=== PATIENT | female | born 1945 | race Caucasian/White ===

== ENCOUNTER 2018-04-29 16:54 | Inpatient (IN) ==
[~2018-04-29 16:54] MED LIST: ACETAMINOPHEN 500 MG TABLET PO ONE; EPINEPHrine PF 0.25 MG, BUPIVACAINE 0.25% PF 30 ML, KETOROLAC INJ 60 MG in NS 30 ML OPSITE ONE; FAMOTIDINE PB 20 MG/50 ML BAG IV ONE; METOCLOPRAMIDE 10mg/2ml INJECTION IVP ONE; ONDANSETRON 4 MG/2 ML INJECTION IVP ONE
[2018-04-29 17:14] VITALS: BMI 27.5
[2018-04-29] MEDS ORDERED: MORPHINE SULFATE 10mg/ml VIAL IVP PRN (17:17)
[2018-04-29] MEDS ORDERED: HYDROCODONE/APAP 7.5 MG/325 MG TABLET PO PRN (17:17)
[2018-04-29] MEDS ORDERED: NOZIN NASAL SWAB NAS ONE (17:17)
[2018-04-29] MEDS: NS 1,000 ML IV SCH (17:34)
[2018-04-29] MEDS ORDERED: CARBOXYMETHYL EACH EYE PRN (17:59)
[2018-04-29] MEDS ORDERED: POLY80 EACH EYE PRN (17:59)
[2018-04-29] MEDS ORDERED: [UNRECOGNIZED DRUG - OTHER] EACH EYE PRN (17:59)
[2018-04-29] MEDS ORDERED: GLYCERIN EACH EYE PRN (17:59)
[2018-04-30] MEDS: NS 1,000 ML IV SCH ×4 (06:48→19:18)
--- NOTE | 2018-04-30 08:11 | XRay Report ---
Indication: PREOP PROCEDURE: XR chest 1V: Encounter: Initial Comparison: September 27, 2016 FINDINGS: The lungs are clear. There is no abnormal airspace opacity, pleural effusion or pneumothorax identified. The heart size, pulmonary vasculature and mediastinum are within normal limits. Degenerative change in the spine with lumbar spinal fusion hardware. IMPRESSION: No acute cardiopulmonary abnormality. There is a preliminary report by virtual radiologic. .
[2018-04-30] MEDS ORDERED: CEFAZOLIN 1 G INJECTION IVP ONE (08:32)
[2018-04-30] MEDS ORDERED: TRANEXAMIC ACID 1,000 MG in NS 100 ML TOP ONE (09:00)
[2018-04-30] MEDS ORDERED: NOZIN NASAL SWAB NAS ONE ×2 (09:30→15:22)
[2018-04-30] MEDS ORDERED: ONDANSETRON 4 MG/2 ML INJECTION IVP ONE (09:45)
[2018-04-30] MEDS ORDERED: METOCLOPRAMIDE 10mg/2ml INJECTION IVP ONE (09:45)
--- NOTE | 2018-04-30 10:19 | Anesthesia Preoperative Report ---
Anesthesia Preoperative Record - Date and Time Date: 04/30/18 Preoperative Diagnosis: ORIF of periprosthetic fracture with right proxima NPO Since Date: 04/29/18 NPO Since Time: 23:00 Allergies/Adverse Reactions: Allergies Allergy/AdvReac Type Severity Reaction Status Date / Time adhesive AdvReac Intermediate skin peels Verified 04/29/18 17:35 off - Vital Signs Vital Signs: Temperature 97.5 F 04/30/18 07:53 Pulse Rate 58 L 04/30/18 08:24 Respiratory Rate 16 04/30/18 07:53 Blood Pressure 145/67 H 04/30/18 07:53 Pulse Oximetry 99 04/30/18 07:53 Height and Weight: Height 1.7 m Weight 81 kg Body Mass Index 27.5 - Medications Inpatient Medications: Current Medications Hydrocodone Bitart/Acetaminophen ([employer] 7.5/325) 1 - 2 tab PO Q4H PRN PRN Reason: Pain Artificial Tears (Refresh Celluvisc) 1 drop EACH EYE PRN PRN Sodium Chloride (Normal Saline) 1,000 mls @ 75 mls/hr IV .[id number] [facility] Last Admin: 04/30/18 06:48 Dose: 75 mls/hr Epinephrine HCl 0.25 mg/Bupivacaine HCl 30 ml/Ketorolac Tromethamine 60 mg/ Sodium Chloride 62.25 mls @ 1 mls/hr OPSITE INTRAOP ONE PRN Reason: Protocol Stop: 05/01/18 22:14 Morphine Sulfate (Morphine Sulfate Vial) 2 - 10 mg IVP Q1H PRN PRN Reason: Pain Morphine Sulfate (Ms Contin) 15 mg PO BID [facility] Last Admin: 04/29/18 21:35 Dose: 15 mg Home Medications: Home Medications Medication Instructions Recorded Confirmed Type Levothyroxine Tab [Synthroid] 100 mcg PO DAILY 07/02/17 04/29/18 History Acetaminophen [Acetaminophen Extra 1,000 mg PO Q6H PRN 04/10/18 04/29/18 History Strength] Bilberry Extract 150 mg PO HS 04/10/18 04/29/18 History Calcium Carbonate 1,200 mg PO DAILY 04/10/18 04/29/18 History Carboxymethyl/Glycerin/Poly80 1 drop EACH EYE PRN PRN 04/10/18 04/29/18 History [Refresh Optive Advanced Drops] Celecoxib [Celecoxib] 200 mg PO DAILY 04/10/18 04/29/18 History Cholecalciferol (Vitamin D3) 2,000 unit PO DAILY 04/10/18 04/29/18 History [Vitamin D3] Duloxetine [Cymbalta] 60 mg PO DAILY 04/10/18 04/29/18 History Ezetimibe [Ezetimibe] 10 mg PO DAILY 04/10/18 04/29/18 History Folic Acid [Folate] 2 mg PO DAILY 04/10/18 04/29/18 History Furosemide [Lasix 20 mg Tab] 20 mg PO DAILY 04/10/18 04/29/18 History Lactobacillus Acidophilus 1 cap PO HS 04/10/18 04/29/18 History [Probiotic] Morphine Sulfate *SR* [Ms Contin] 15 mg PO BID 04/10/18 04/29/18 History Omeprazole [Prilosec] 20 mg PO ACB 04/10/18 04/29/18 History Potassium Chloride 10 meq PO DAILY 04/10/18 04/29/18 History Simethicone [Gas-X] 125 mg PO PRN PRN 04/10/18 04/29/18 History azaTHIOprine [Imuran] 50 mg PO BID 04/10/18 04/29/18 History cycloSPORINE [Restasis Multidose] 1 drops EACH EYE BID 04/29/18 04/29/18 History - Medical History Respiratory: Reports: Bronchitis, Sleep Apnea, Other (seasonal allergies) Gastrointestional: Reports: Gastroesophageal Reflux Disease Neuro/Musculoskeletal: Reports: Back Problems (chronic with history of back fusion, neuropathy to lower extremeties), Depression Renal/Endocrine: Reports: Thyroid Disease Other History: Reports: Cancer (HX UTERINE, UTERUS REMOVED) - Surgical History HEENT Surgeries: Reports: Eye Surgery (CATARACTS), Tonsillectomy Respiratory Surgery/Treatments: Reports: CPAP Use GI Surgery/Treatments: Reports: Appendectomy Musculoskeletal Surgery/Tx: Reports: Total Hip Replacement (BILAT, MUSCLE WORK DONE TO RIGHT HIP), Total Knee Replacement (BILAT) Reproductive Surgery/Treatment: Reports: Hysterectomy Hx Family Anesthesia Reaction: No History of Motion Sickness: No - Social History Smoking Status: Never smoker Hx Chewing Tobacco Use: No Second Hand Exposure: No Substance Use Type: does not use Alcohol Intake: current Alcohol Intake Frequency: does not drink - Pertinent Findings Laboratory: CBC and BMP 04/29/18 17:30 06/13/18 17:30 BMP 04/29/18 17:30 Sodium 142 Potassium 4.8 Chloride 103 Carbon Dioxide 27 BUN 23.0 H Creatinine 1.0 Glucose 94 Calcium 9.6 Liver Function 04/29/18 Range/Units 17:30 Total Bilirubin 0.40 (0.20-1.30) MG/DL AST 49 H (14-36) U/L ALT 42 H (1-35) U/L Alkaline Phosphatase 121 (38-126) U/L Albumin 4.5 (3.5-5.0) g/dL EKG: Sinus Bradycardia - Physical Exam Respiratory Exam: Present: lungs clear Cardiovascular Exam: Present: regular rate and rhythm - Airway Assessment Mallampati Score: II TMD: 4 Fingerbreadths Neck Extension: fair Teeth: chipped teeth/crowns Overall Assessment: may be difficult intubation - ASA ASA Score: 3 - Plan Anesthesia: General TIVA - Discussion Discussion: Discussed risks/options/alternatives of anesthesia and questions answered. Patient consents. Nursing pain assessment noted. Present for Discussion: spouse, children Attestation Statement: Prior to the delivery of any anesthetic medication, I examined the patient, developed the plan, obtained the patient's consent and discussed the risk and benefits of the procedure with the patient/guardian.
[2018-04-30] MEDS ORDERED: PROPOFOL 500 MG/50 ML VIAL ONE (10:26)
[2018-04-30] MEDS ORDERED: LIDOCAINE 2% (100mg/5mL) 5ml PF SDV ONE (10:26)
[2018-04-30] MEDS ORDERED: ROCURONIUM 50 MG/5 ML INJECTION IVP ONE (10:26)
[2018-04-30] MEDS ORDERED: KETAMINE 500 MG/10 ML INJECTION ONE (10:26)
[2018-04-30] MEDS ORDERED: FentaNYL 250 MCG/5 ML INJECTION ONE (10:26)
[2018-04-30] MEDS ORDERED: DEXAMETHASONE 4 MG/ML INJECTION ONE (10:27)
[2018-04-30] MEDS ORDERED: ONDANSETRON 4 MG/2 ML INJECTION ONE (10:27)
[2018-04-30] MEDS ORDERED: PROPOFOL 20 ML ONE ×2 (10:30→12:45)
[2018-04-30] MEDS ORDERED: SEVOFLURANE 250ml LIQUID IH ONE (10:35)
[2018-04-30] MEDS ORDERED: EPHEDRINE 50mg/ml INJECTION ONE (11:20)
[2018-04-30] MEDS ORDERED: VANCOMYCIN 1,000 MG INJECTION ONE (11:29)
[2018-04-30] MEDS: VANCOMYCIN 1,000 MG INJECTION IAR ONE ×2 (13:11→13:19)
[2018-04-30] MEDS ORDERED: SUGAMMADEX 200mg/2ml INJECTION IVP ONE (13:13)
--- NOTE | 2018-04-30 13:44 | Remote Fluorsocopy Report ---
Indication: ORIF RIGHT HIP PROCEDURE: RF hip RT 2 view: Encounter: Initial Comparison: April 29, 2018 Findings: Six fluoroscopic spot images show open reduction and internal fixation of the periprosthetic proximal femoral fracture with placement of five cerclage wires. Impression: Fluoroscopy as above. Fluoroscopy time is 52 seconds. Fluoroscopy dose is 1080 mRad. .
[2018-04-30] MEDS: HYDROMORPHONE 2 MG/ML INJECTION IVP PRN ×3 (13:55→14:18)
[2018-04-30] MEDS ORDERED: FentaNYL 100 MCG/2 ML INJECTION IVP PRN (14:23)
--- NOTE | 2018-04-30 14:51 | Anesthesia Postoperative Note ---
- Date and Time Date: 04/30/18 Time: 14:50 - Status Patient Participated in Evaluation: Patient Participated in Person Vital Signs: Temperature 97.1 F 04/30/18 14:43 Pulse Rate 68 04/30/18 14:40 Respiratory Rate 12 04/30/18 14:40 Blood Pressure 132/65 04/30/18 14:40 Pulse Oximetry 98 04/30/18 14:40 Respiratory Function: Airway Patent, Regular Respirations Cardiovascular Function: Regular Pulse Mental Status: Alert and Oriented Pain Intensity: 4 Hydration: IV Infusing Complications During Recover: None Apparent - Follow-Up Instructions Instructions: Per Surgeon
[2018-04-30] MEDS ORDERED: ACETAMINOPHEN 325 MG TABLET PO PRN (15:22)
[2018-04-30] MEDS ORDERED: SENNA + DOCUSATE TABLET PO PRN (15:22)
[2018-04-30] MEDS ORDERED: ONDANSETRON 4 MG/2 ML INJECTION IVP PRN (15:22)
[2018-04-30] MEDS: NOZIN NASAL SWAB NAS SCH ×2 (15:28→23:56)
[2018-04-30] MEDS: Oxycodone *IR* 5 MG TABLET PO PRN ×4 (16:59→23:56)
[2018-04-30] MEDS: CEFAZOLIN 2 G in NS 100 ML IV SCH (18:05)
[2018-04-30] MEDS: CycloSPORINE 0.05% EYE DROPS 4ml EACH EYE SCH (20:14)
[2018-04-30] MEDS: ENOXAPARIN 40 MG/0.4 ML INJECTION SQ SCH (20:14)
--- NOTE | 2018-04-30 21:57 | Operative Note ---
DATE OF SURGERY 04/30/2018 PREOPERATIVE DIAGNOSIS Right femur periprosthetic fracture. POSTOPERATIVE DIAGNOSIS Right femur periprosthetic fracture. PROCEDURE Open reduction internal fixation of right femur periprosthetic fracture. SURGEON Sanchez Mckeon MD [employer] TE[employer] Osbaldo Tyson PA-C COMPLICATIONS None. ANESTHESIA General. EBL/FLUIDS Please see anesthetic record. DESCRIPTION OF PROCEDURE Mrs. Maria and her right thigh were identified and marked in the preoperative holding area. She was brought back to the operating suite and placed supine on the operating table. She was placed under general anesthesia. She was then placed into a lateral decubitus position with well-padded positioners. Next, a roll was placed. The right lower extremity was prepped and draped in my normal sterile fashion. Time-out was performed. A lateral approach to her femur was performed using a previous incision site. Sharp dissection was carried to subcutaneous tissue. She has had multiple previous surgeries in this area and there was abundant scar tissue and there was a very flimsy fascial layer which was incised in line with the skin incision. Muscle fibers were then divided proximally and then the femur was encountered at the fracture site. I then dissected directly on bone to remove soft tissue to expose the entire fracture up to the start of the great trochanter. The fracture was slightly shortened and the distal fragment was internally rotated relative to the proximal fragment. Soft tissue that was in the fracture site was removed. The wound was thoroughly irrigated. I then attempted to reduce the fracture site with traction on the leg in external rotation. We were able to get [id number] reduction clamp. This did not zabala in perfectly and was still about 2 cm short. After multiple trials including, ensuring the patient was completely relaxed, we were yet 2 mm short. I felt the only way this was possible was if a component had possibly subsided just slightly. She had been walking on this since the injury for about three weeks. I then placed one cable around the fracture site and we provisionally tightened it down. When we did this the fracture did reduce much better, very near anatomical. This was checked on fluoroscopic films. I did decide to supplement the fixation with a cortical strut graft which was thawed on the back table. It was approximately 7 inches long. It was placed laterally over the distal femur under the first provisional cable. It was also noted that it appeared she had a previous fracture of the femur. There was callus present a couple of centimeters distal to the femoral stem and also slight deformity of the femur at this location as well. I proceeded to place four more cables around the graft , two distal to the fracture and two proximally around the fracture site itself. All were tightened down sequentially and checked on fluoroscopic imaging. The middle cable when tightening did break, not injuring the bone. It was replaced with a new cable. After all five of these cables were tightened and crimped I placed one more cable proximal to the graft just below the lesser trochanter. It was also tightened and crimped. All cables were checked for tightness a second time and fluoroscopic imaging was used to confirm good fracture reduction and hardware placement. The wound was thoroughly irrigated. One gram of TXA was placed into the wound and allowed to sit for three minutes and then irrigated out. I also used Betadine solution and irrigation during the case. The IT band fascia was repaired with #1 Vicryl. One gram of vancomycin powder was placed into the wound. The subcutaneous tissue was closed with 2-0 Vicryl and the skin was closed with neeta. A sterile dressing was placed. She was placed back into a supine position and allowed to awaken from general anesthesia and then taken to the recovery room under the care of Anesthesia. She tolerated the procedure well. There were no complications. GROVER
[2018-05-01] MEDS: NS 1,000 ML IV SCH ×4 (02:40→12:54)
[2018-05-01] MEDS: CEFAZOLIN 2 G in NS 100 ML IV SCH (02:40)
[2018-05-01] MEDS: Oxycodone *IR* 5 MG TABLET PO PRN ×5 (03:40→19:08)
[2018-05-01] MEDS: LEVOTHYROXINE 100 MCG TABLET PO SCH (06:21)
[2018-05-01] MEDS: OMEPRAZOLE 20 MG CAPSULE PO SCH (06:21)
[2018-05-01] MEDS: NOZIN NASAL SWAB NAS SCH ×4 (06:21→23:53)
--- NOTE | 2018-05-01 08:18 | Orthopedic Progress Note ---
Date: Date: 05/01/18 Time: 755 Subjective/Severity of Illness: Emerald is doing very well. Pain is minimal when lying in bed. Occasionally gets twinges of pain in the thigh. No CP or SOA. Had a vagal event last evening when up to the commode. IV fluid bolus given and symptoms have not reoccurred. She denies lightheadedness or dizziness. BPs this AM were 109/53 lying and 98/ 41 standing. She has been up to the BR a couple times. Renal function is good this AM . Hgb dropped from 12.0 to 8.4 . Orthopedic Exam Vital signs: Temperature 98.1 F 05/01/18 07:45 Pulse Rate 67 05/01/18 07:45 Respiratory Rate 16 05/01/18 07:45 Blood Pressure 115/57 05/01/18 07:45 Pulse Oximetry 99 05/01/18 07:45 - Constitutional General Appearance: Present: alert, cooperative, no acute distress - Respiratory Exam Present: non-labored - Cardiovascular Exam Present: Regular Rate/Rhythm, pedal pulses intact - Extremities Exam Present: pulses intact. Absent: calf tenderness - Dressing Dressing: dry, intact, other (Shaddowing seen on proximal dressing. ) - Integumentary Exam Present: pink, warm, dry - Neurological Exam Present: intact to light touch, no deficits - Psychiatric Exam Present: alert, normal affect - Labs Result Diagrams: 05/01/18 04:46 05/01/18 04:46 Abnormal lab results 05/01/18 05/01/18 Range/Units 04:46 04:46 RBC 2.77 L (4.00-5.20) M/MM3 Hgb 8.4 L D (12-16) GM/DL Hct 26.6 L D (36-46) % Neut % (Auto) 80.4 H (33-66) % Lymph % (Auto) 11.1 L (23-45) % Neut # (Auto) 7.9 H (1.8-7.7) T/MM3 Glucose 119 H (65-110) MG/DL Calcium 8.1 L D (8.4-10.2) MG/DL H & H 04/29/18 05/01/18 Range/Units 17:30 04:46 Hgb 12.0 8.4 L D (12-16) GM/DL Hct 36.9 26.6 L D (36-46) % Orthopedic Assessment and Plan (1) Najma-prosthetic fracture of femur following total hip arthroplasty Status: Acute Qualifiers: Encounter type: initial encounter Qualified Code(s): M97.8XXA - Periprosthetic fracture around other internal prosthetic joint, initial encounter; Z96.649 - Presence of unspecified artificial hip joint Assessment and Plan: Lovenox protocol for VTE prophylaxis. Hgb 8.4 this AM. Will need to monitor. SCD's and mobilization for added DVT coverage. Foot flat / touch wt bearing. Pt having some BP problems and on IVFs. Will get hospitalist consult to help manage her medical issues. Check AM labs. PT/OT services to improve independent function. Discharge Planning per Case Management. - Anticoagulation Therapy Anticoagulation: Lovenox 40 mg SQ Daily x 30 days from day of surgery Hospital Course Summary Disclaimer: The visit summary below is not to be considered part of the above Progress Note.
[2018-05-01] MEDS: CycloSPORINE 0.05% EYE DROPS 4ml EACH EYE SCH ×2 (08:58→21:59)
[2018-05-01] MEDS: FOLIC ACID 1 MG TABLET PO SCH (08:58)
[2018-05-01] MEDS: FUROSEMIDE 20 MG TABLET PO SCH (08:58)
[2018-05-01] MEDS: EZETIMIBE 10 MG TABLET PO SCH (08:58)
[2018-05-01] MEDS: DULOXETINE 60 MG CAPSULE PO SCH (08:58)
[2018-05-01] MEDS: CELECOXIB 200 MG CAPSULE PO SCH (08:59)
[2018-05-01] MEDS: CALCIUM CARBONATE 600 MG TABLET PO SCH (08:59)
--- NOTE | 2018-05-01 16:54 | Consult Note ---
Consult Information - Data of Consult Consult date: 05/01/18 Requesting Physician: Sourav Mckeon MD Primary Care Provider: Leonel Ramirez MD - Consult Narrative Reason for consult: hypotension, CKD History of present illness: Patient is a 73yo who fell the end of March resulting in severe hip pain. She went to ED and xray was neg. She followed by with ortho and a bone scan was done showing no significant abnormality. A repeat xray showed a right femur periprosthetic fracture. She underwent ORIF of this fracture yesterday with Dr. Mckeon. She has been doing well other than she had a vagal event last evening when up to the commode. She was given IV fluid bolus and hasn't had return of sxs. She was orthostatic this morning but denies any significant lightheadedness today. Her hgb was 12.0 pre-op and 8.4 post-op. Hospitalist service has been consulted to follow her hypotension. Hasn't had a BM since admission. Pain is controlled at present, but she is starting to have more discomfort today. Past Medical History Medical History: Medical History (Last Reviewed 04/29/18 @ 15:32 by VALORIE Francois) Vitamin D deficiency (Chronic) Onset Date: ~09/2017 Vitamin D insufficiency should be treated with 50,000 iu weekly as she has already begun. Agree with recheck aftetr [address] Martínez has planned. Hypothyroidism (Chronic) Onset Date: ~1959 Clinically euthyroid; confirm chemically. Kidney disease, chronic, stage III (GFR 30-59 ml/min) (Chronic) Deep vein thrombosis (DVT) of left lower extremity (Chronic) Asthma (Chronic) Obstructive sleep apnea (Chronic) Neuropathy (Chronic) Muscle disorder (Chronic) Rt Leg Weakness Osteoarthritis (Chronic) Depression (Chronic) GERD (gastroesophageal reflux disease) (Chronic) Uterine cancer (Chronic) Onset Date: ~2011 Surgical History: Rt Salpingo oophorectomy. Rods in back for scoliosis 1962. Lt TKA 09-12-16. Hysterectomy w/ pelvic lymph nodes. Rt JACQUELINE 1998 (Had an additional 7 surgeries on hip). Fusion L1-L5 2005. Lt JACQUELINE 2006. Rt TKA 2013. Appendectomy 2001. Bilat [facility] Family History: Family History (Last Reviewed 04/29/18 @ 15:32 by VALORIE Francois) Mother Diabetes Heart disease High blood pressure Sister Thyroid disease Family History: As Above - Social History Smoking status: Never smoker Substance use type: does not use Alcohol intake frequency: does not drink (occasional) Household members: none Current occupational status: retired Current residence: Apartment/Private Home Social history: PCP - Dr. Ramirez Neuro - Dr. Hardy Rheum - Dr. Woo Ortho - Dr. Mckeon/Mauricio RUBBER WORKER/ONC - Dr. Denis Review of Systems All systems PM: 10-point ROS was reviewed, no additional remarkable complaints except (R hip pain) Medications Home Medications Medication Instructions Recorded Confirmed Type Levothyroxine Tab [Synthroid] 100 mcg PO DAILY 07/02/17 04/29/18 History Acetaminophen [Acetaminophen Extra 1,000 mg PO Q6H PRN 04/10/18 04/29/18 History Strength] Bilberry Extract 150 mg PO HS 04/10/18 04/29/18 History Calcium Carbonate 1,200 mg PO DAILY 04/10/18 04/29/18 History Carboxymethyl/Glycerin/Poly80 1 drop EACH EYE PRN PRN 04/10/18 04/29/18 History [Refresh Optive Advanced Drops] Celecoxib [Celecoxib] 200 mg PO DAILY 04/10/18 04/29/18 History Cholecalciferol (Vitamin D3) 2,000 unit PO DAILY 04/10/18 04/29/18 History [Vitamin D3] Duloxetine [Cymbalta] 60 mg PO DAILY 04/10/18 04/29/18 History Ezetimibe [Ezetimibe] 10 mg PO DAILY 04/10/18 04/29/18 History Folic Acid [Folate] 2 mg PO DAILY 04/10/18 04/29/18 History Furosemide [Lasix 20 mg Tab] 20 mg PO DAILY 04/10/18 04/29/18 History Lactobacillus Acidophilus 1 cap PO HS 04/10/18 04/29/18 History [Probiotic] Morphine Sulfate *SR* [Ms Contin] 15 mg PO BID 04/10/18 04/29/18 History Omeprazole [Prilosec] 20 mg PO ACB 04/10/18 04/29/18 History Potassium Chloride 10 meq PO DAILY 04/10/18 04/29/18 History Simethicone [Gas-X] 125 mg PO PRN PRN 04/10/18 04/29/18 History azaTHIOprine [Imuran] 50 mg PO BID 04/10/18 04/29/18 History cycloSPORINE [Restasis Multidose] 1 drops EACH EYE BID 04/29/18 04/29/18 History Allergies Allergy/AdvReac Type Severity Reaction Status Date / Time adhesive AdvReac Intermediate skin peels Verified 04/29/18 17:35 off Exam Vital Signs: Temperature 98.4 F 05/01/18 16:00 Pulse Rate 72 05/01/18 16:00 Respiratory Rate 14 05/01/18 16:00 Blood Pressure 100/46 05/01/18 16:00 Pulse Oximetry 98 05/01/18 16:00 Height/Weight/BMI: Height 1.7 m Weight 81.3 kg Body Mass Index 27.5 - Constitutional Present: no acute distress, well nourished, well developed - Routine HEENT Exam Head: Present: normocephalic, atraumatic Eye: Present: EOMI, PERRL ENT: Present: mucous membranes moist, oropharynx clear - Routine Neck Exam Absent: lymphadenopathy - Routine Respiratory Exam Present: CTA bilaterally. Absent: wheezes - Routine Cardiovascular Exam Present: RRR, murmur - Routine Abdominal Exam Present: soft, normoactive bowel sounds. Absent: tenderness, distended - Routine Extremities Exam Present: no edema, normal capillary refill - Routine Skin Exam Present: dry, warm - Routine Neurological Exam Present: alert, oriented X3, CN II-XII intact - Routine Psychiatric Exam Present: normal affect, cooperative Results - Labs CBC & Chem 7: 05/01/18 04:46 05/01/18 04:46 Assessment and Plan Assessment and Plan: Assessment Hypotension Acute blood loss anemia r/t surgery S/p ORIF R femur periprosthetic fracture Post op constipation Vitamin D deficiency Hypothyroidism Onset Date: ~1959 Kidney disease, chronic, stage III (GFR 30-59 ml/min) Deep vein thrombosis (DVT) of left lower extremity Asthma Obstructive sleep apnea -uses CPAP Neuropathy Chronic pain - on Morphine sulfate BID Muscle disorder - Rt Leg Weakness Osteoarthritis Depression GERD H/o Uterine cancer - (no chemo/radiation, clear lymph nodes. No recurrence) Onset Date: ~2011 Plan Pt is taking po well, will DC IVF's. Hgb dropped 12.0-->8.4. Repeat CBC in am. Transfuse if <8 given her CKD. Pain management per ortho. Check orthostatics in the am. DVT Prophylaxis: Lovenox Resuscitation Status: Full Code - Physician Narrative Physician: Héctor Ortiz MD Narrative: Date: 05/01/18 Time: 1646 Have independently interviewed and examined pt. Chart reviewed. Case discussed with my PA. Care plan developed with my supervision; agree with above. Admitted for repair of periprosthetic fracture. Tolerated surgery well. Consult placed due to low BP. Reports has vasovagal event. Overall, not feeling dizzy/ unsteady with positional changes but does have to change positions slowly due to post op pain/stiffness. Has never had elevation of blood pressure. Reviewing BP trends from this admission, BP trending down gradually. HBG also with decrease to 8.4. Denies palpitations or chest pain. Breathing well. Appetite stable. Reports flatus, but no stool production since in preop area. PRN bowel medications available but not used. Pain stable at rest but increases with activities/therapy. Feels pain controlled. Lungs: clear bilaterally CV: regular AB: soft nt/nd BS present MSE: awake alert appropriate, thoughts linear Plan: Feel can stop IVF as oral intake doing well. Possible decrease in BP due to post op anemia-continue to follow HGB and transfuses as indicated. Will monitor for orthostasis. Potentially need Florinef if BP decreases. With post op constipation will add routine Miralax (hold with loose stool). Continue supportive care as outlined by ortho. Encourage therapy. Encourage pulm toilet. Will continue to follow along. Hospital Course Summary Disclaimer: The visit summary below is not to be considered part of the above Progress Note.
[2018-05-01] MEDS: POLYETHYL GLYCOL 3350 17gm PACKET PO SCH (19:32)
[2018-05-01] MEDS: ENOXAPARIN 40 MG/0.4 ML INJECTION SQ SCH (21:14)
[2018-05-02] MEDS: Oxycodone *IR* 5 MG TABLET PO PRN ×4 (03:18→14:50)
[2018-05-02] MEDS: NOZIN NASAL SWAB NAS SCH ×2 (06:22→16:06)
[2018-05-02] MEDS: OMEPRAZOLE 20 MG CAPSULE PO SCH (06:23)
[2018-05-02] MEDS: LEVOTHYROXINE 100 MCG TABLET PO SCH (06:23)
[2018-05-02] MEDS: DULOXETINE 60 MG CAPSULE PO SCH (09:51)
[2018-05-02] MEDS: EZETIMIBE 10 MG TABLET PO SCH (09:51)
[2018-05-02] MEDS: REFRESH CELLUVISC 1% Eye Drops 0.4ml EACH EYE PRN (09:51)
[2018-05-02] MEDS: POLYETHYL GLYCOL 3350 17gm PACKET PO SCH (09:51)
[2018-05-02] MEDS: FUROSEMIDE 20 MG TABLET PO SCH (09:51)
[2018-05-02] MEDS: FOLIC ACID 1 MG TABLET PO SCH (09:52)
[2018-05-02] MEDS: CALCIUM CARBONATE 600 MG TABLET PO SCH (09:52)
[2018-05-02] MEDS: CELECOXIB 200 MG CAPSULE PO SCH (09:52)
[2018-05-02] MEDS: CycloSPORINE 0.05% EYE DROPS 4ml EACH EYE SCH ×2 (09:54→22:39)
[2018-05-02] MEDS ORDERED: NS FLUSH BAG 500ml IV PRN (11:20)
--- NOTE | 2018-05-02 11:25 | Progress Note ---
- Date 05/02/18 Subjective: F/U: Hypotension, Acute blood loss anemia r/t surgery, S/p ORIF R femur periprosthetic fracture, Post op constipation Doing okay today. Pain controlled at rest; does hurt with movements/positional changes. Worked with PT today on transfers. Breathing well. No chest pain. No nausea. Not had stool-did receive Miralax this am. Objective Vital signs: Temperature 97.7 F 05/02/18 07:58 Pulse Rate 67 05/02/18 07:58 Respiratory Rate 16 05/02/18 07:58 Blood Pressure 110/51 05/02/18 07:58 Pulse Oximetry 99 05/02/18 07:58 Height/Weight/BMI: Height 1.7 m Weight 81.9 kg Body Mass Index 27.5 - Constitutional Present: well nourished, well developed, average body habitus, cooperative - Routine HEENT Exam Head: Present: normocephalic, atraumatic Eye: Present: EOMI, PERRL ENT: Present: mucous membranes moist - Routine Respiratory Exam Present: CTA bilaterally. Absent: respiratory distress, wheezes, crackles - Routine Cardiovascular Exam Present: RRR, no murmur - Routine Abdominal Exam Present: soft, normoactive bowel sounds, non distended, non tender. Absent: guarding - Routine Extremities Exam Present: no edema. Absent: cyanosis, clubbing Comments: SCD in place - Routine Musculoskeletal Exam Musculoskeletal: Present: no clubbing or cyanosis - Routine Skin Exam Present: dry, warm - Routine Neurological Exam Present: alert, oriented X3, CN II-XII intact, moving all extremities, vision grossly intact, hearing grossly intact, normal speech. Absent: motor deficit, altered mental status - Routine Psychiatric Exam Present: normal affect, cooperative Results - Labs CBC & Chem 7: 05/02/18 03:56 05/02/18 03:56 Assessment and Plan Assessment and Plan: Assessment Hypotension Acute blood loss anemia r/t surgery S/p ORIF R femur periprosthetic fracture Post op constipation Vitamin D deficiency Hypothyroidism Onset Date: ~1959 Kidney disease, chronic, stage III (GFR 30-59 ml/min) Deep vein thrombosis (DVT) of left lower extremity Asthma Obstructive sleep apnea -uses CPAP Neuropathy Chronic pain - on Morphine sulfate BID Muscle disorder - Rt Leg Weakness Osteoarthritis Depression GERD H/o Uterine cancer - (no chemo/radiation, clear lymph nodes. No recurrence) Onset Date: ~2011 Plan Hemoglobin decreased to 7.7. With BP running low in the post op setting, will give 1 unit pRBC. Continue supportive post op care. Miralax added for bowel function-prn medications available. Recheck Hemogram in am due to transfusion. Will check BMP in am to monitor renal status. DVT Prophylaxis: SCD's, Lovenox Resuscitation Status: Full Code - Time spent with patient Time with patient PN: 25 minutes - Physician Narrative Physician: Héctor Ortiz MD Narrative: Date: 05/02/18 Time: 1122 Hospital Course Summary Disclaimer: The visit summary below is not to be considered part of the above Progress Note.
--- NOTE | 2018-05-02 12:58 | Orthopedic Progress Note ---
Date: Date: 05/02/18 Time: 1255 Subjective/Severity of Illness: Doing well. She is going to recieve 1 unit prbcs today. No new complaints. Exam - Constitutional Vital Signs: Temperature 98.4 F 05/02/18 11:22 Pulse Rate 66 05/02/18 11:22 Respiratory Rate 14 05/02/18 11:22 Blood Pressure 97/58 05/02/18 11:22 Pulse Oximetry 100 05/02/18 11:22 General: cooperative, no acute distress Orientation: alert - RLE Right Lower Extremity comments: Dressing CDI - Respiratory Respiratory Exam: non-labored - Cardiac Cardiovascular exam: Regular Rate/Rhythm, pedal pulses intact - Labs Result Diagrams: 05/02/18 03:56 05/02/18 03:56 Abnormal lab results 04/29/18 05/02/18 Range/Units 17:30 03:56 RBC 2.55 L (4.00-5.20) M/MM3 Hgb 7.7 L (12-16) GM/DL Hct 24.5 L (36-46) % [place] % (Auto) 11.6 H (0-9.0) % Crossmatch (AHG) See Detail H & H 04/29/18 05/01/18 05/02/18 Range/Units 17:30 04:46 03:56 Hgb 12.0 8.4 L D 7.7 L (12-16) GM/DL Hct 36.9 26.6 L D 24.5 L (36-46) % Orthopedic Assessment and Plan (1) Najma-prosthetic fracture of femur following total hip arthroplasty Status: Acute Qualifiers: Encounter type: initial encounter Qualified Code(s): M97.8XXA - Periprosthetic fracture around other internal prosthetic joint, initial encounter; Z96.649 - Presence of unspecified artificial hip joint Assessment and Plan: Continue current treatment. Will change tylenol to scheduled instead of PRN. Hospital Course Summary Disclaimer: The visit summary below is not to be considered part of the above Progress Note.
[2018-05-02] MEDS: ACETAMINOPHEN 500 MG TABLET PO SCH ×2 (13:44→18:46)
[2018-05-02] MEDS: ENOXAPARIN 40 MG/0.4 ML INJECTION SQ SCH (21:46)
[2018-05-03] MEDS: ACETAMINOPHEN 500 MG TABLET PO SCH ×4 (00:46→18:00)
[2018-05-03] MEDS: NOZIN NASAL SWAB NAS SCH ×5 (00:47→20:34)
[2018-05-03] MEDS: CycloSPORINE 0.05% EYE DROPS 4ml EACH EYE SCH ×3 (00:47→20:34)
[2018-05-03] MEDS: OMEPRAZOLE 20 MG CAPSULE PO SCH (06:17)
[2018-05-03] MEDS: LEVOTHYROXINE 100 MCG TABLET PO SCH (06:18)
[2018-05-03 08:05] VITALS: RESP 16
[2018-05-03] MEDS: EZETIMIBE 10 MG TABLET PO SCH (08:15)
[2018-05-03] MEDS: CELECOXIB 200 MG CAPSULE PO SCH (08:15)
[2018-05-03] MEDS: CALCIUM CARBONATE 600 MG TABLET PO SCH (08:15)
[2018-05-03] MEDS: POLYETHYL GLYCOL 3350 17gm PACKET PO SCH (08:15)
[2018-05-03] MEDS: DULOXETINE 60 MG CAPSULE PO SCH (08:16)
[2018-05-03] MEDS: FUROSEMIDE 20 MG TABLET PO SCH (08:16)
[2018-05-03] MEDS: FOLIC ACID 1 MG TABLET PO SCH (08:16)
[2018-05-03] MEDS: REFRESH CELLUVISC 1% Eye Drops 0.4ml EACH EYE PRN ×2 (08:20→20:33)
--- NOTE | 2018-05-03 09:28 | Progress Note ---
- Date 05/03/18 Subjective: F/U: Hypotension, Acute blood loss anemia r/t surgery, S/p ORIF R femur periprosthetic fracture, Post op constipation Feels ready to pass some stool-took extra coffee this am to help. Eating well. Not having nausea or ab pain; does feel slightly 'full' to ab as not had stools. Pain stable. Breathing well. No f/c. Objective Vital signs: Temperature 97.8 F 05/03/18 08:00 Pulse Rate 71 05/03/18 08:00 Respiratory Rate 16 05/03/18 08:00 Blood Pressure 113/54 05/03/18 08:00 Pulse Oximetry 96 05/03/18 08:00 Height/Weight/BMI: Height 1.7 m Weight 83 kg Body Mass Index 27.5 - Constitutional Present: well nourished, well developed, average body habitus, cooperative - Routine HEENT Exam Head: Present: normocephalic, atraumatic Eye: Present: EOMI, PERRL ENT: Present: mucous membranes moist - Routine Respiratory Exam Present: CTA bilaterally. Absent: respiratory distress, wheezes, crackles - Routine Cardiovascular Exam Present: RRR, no murmur - Routine Abdominal Exam Present: soft, non distended, non tender. Absent: normoactive bowel sounds ( decreased), guarding - Routine Extremities Exam Present: cyanosis, clubbing, no edema, pulses intact - Routine Skin Exam Present: dry, warm - Routine Neurological Exam Present: alert, oriented X3, CN II-XII intact, moving all extremities, vision grossly intact, hearing grossly intact, normal speech. Absent: motor deficit, altered mental status - Routine Psychiatric Exam Present: normal affect, normal thought process, cooperative Results - Labs CBC & Chem 7: 05/03/18 04:24 05/03/18 04:24 Assessment and Plan Assessment and Plan: Assessment Hypotension - improved Acute blood loss anemia r/t surgery S/p ORIF R femur periprosthetic fracture Post op constipation Vitamin D deficiency Hypothyroidism Onset Date: ~1959 Kidney disease, chronic, stage III (GFR 30-59 ml/min) Deep vein thrombosis (DVT) of left lower extremity Asthma Obstructive sleep apnea -uses CPAP Neuropathy Chronic pain - on Morphine sulfate BID Muscle disorder - Rt Leg Weakness Osteoarthritis Depression GERD H/o Uterine cancer - (no chemo/radiation, clear lymph nodes. No recurrence) Onset Date: ~2011 Plan Hemoglobin improved to 8.3 post transfusion yesterday but decreased to 7.9 this am. Will transfuse 1 unit pRBC. Bowels about to move - encouraged Dulcolax suppository if not having success. Continue Miralax routinely. Blood pressure improving. Electrolytes and renal function stable. Continue supportive post op care. Recheck Hemogram in am due to transfusion. Will check BMP in am to monitor renal status. DVT Prophylaxis: SCD's, Lovenox Resuscitation Status: Full Code - Time spent with patient Time with patient PN: 25 minutes - Physician Narrative Physician: Héctor Ortiz MD Narrative: Date: 05/03/18 Time: 923 Hospital Course Summary Disclaimer: The visit summary below is not to be considered part of the above Progress Note.
--- NOTE | 2018-05-03 13:19 | Orthopedic Progress Note ---
Date: Date: 05/03/18 Time: 1317 Subjective/Severity of Illness: Pain better controlled today. No new complaints. Receiving transfusion. Exam - Constitutional Vital Signs: Temperature 96.7 F L 05/03/18 11:42 Pulse Rate 57 L 05/03/18 11:42 Respiratory Rate 16 05/03/18 11:42 Blood Pressure 113/54 05/03/18 11:42 Pulse Oximetry 99 05/03/18 11:42 General: cooperative, no acute distress Orientation: alert - Respiratory Respiratory Exam: non-labored - Cardiac Cardiovascular exam: Regular Rate/Rhythm, pedal pulses intact - Labs Result Diagrams: 05/03/18 04:24 05/03/18 04:24 Abnormal lab results 04/29/18 05/02/18 05/03/18 Range/Units 17:30 16:32 04:24 RBC 2.62 L (4.00-5.20) M/MM3 Hgb 8.3 L 7.9 L (12-16) GM/DL Hct 24.7 L (36-46) % AST (14-36) U/L Total Protein (6.3-8.2) g/dL Albumin (3.5-5.0) g/dL Globulin (2.4-3.6) G/DL Crossmatch (AHG) See Detail 05/03/18 05/03/18 Range/Units 04:24 08:52 RBC (4.00-5.20) M/MM3 Hgb (12-16) GM/DL Hct (36-46) % AST 38 H (14-36) U/L Total Protein 5.1 L (6.3-8.2) g/dL Albumin 2.8 L (3.5-5.0) g/dL Globulin 2.3 L (2.4-3.6) G/DL Crossmatch (AHG) See Detail H & H 04/29/18 05/01/18 05/02/18 Range/Units 17:30 04:46 03:56 Hgb 12.0 8.4 L D 7.7 L (12-16) GM/DL Hct 36.9 26.6 L D 24.5 L (36-46) % 05/02/18 05/03/18 Range/Units 16:32 04:24 Hgb 8.3 L 7.9 L (12-16) GM/DL Hct 24.7 L (36-46) % Orthopedic Assessment and Plan (1) Najma-prosthetic fracture of femur following total hip arthroplasty Status: Acute Qualifiers: Encounter type: initial encounter Qualified Code(s): M97.8XXA - Periprosthetic fracture around other internal prosthetic joint, initial encounter; Z96.649 - Presence of unspecified artificial hip joint Assessment and Plan: Continue current treatment. Agree with transfusion. Monitor Hgb. Foot flat weight bearing on right for transfers Hospital Course Summary Disclaimer: The visit summary below is not to be considered part of the above Progress Note.
[2018-05-03] MEDS: ENOXAPARIN 40 MG/0.4 ML INJECTION SQ SCH (20:33)
[2018-05-04] MEDS: NOZIN NASAL SWAB NAS SCH ×2 (00:50→09:27)
[2018-05-04] MEDS: ACETAMINOPHEN 500 MG TABLET PO SCH ×3 (01:48→15:01)
[2018-05-04] MEDS: OMEPRAZOLE 20 MG CAPSULE PO SCH (05:58)
[2018-05-04] MEDS: LEVOTHYROXINE 100 MCG TABLET PO SCH (05:58)
--- NOTE | 2018-05-04 08:19 | Orthopedic Progress Note ---
Date: Date: 05/04/18 Time: 813 Subjective/Severity of Illness: Emerald is having some groin pain with movement. This is new for her since being here. It began yesterday afternoon. No specific movement or triggering events. Denies CP, SOA or cough. Orthopedic Exam Vital signs: Temperature 98.1 F 05/01/18 07:45 Pulse Rate 67 05/01/18 07:45 Respiratory Rate 16 05/01/18 07:45 Blood Pressure 115/57 05/01/18 07:45 Pulse Oximetry 99 05/01/18 07:45 - Constitutional General Appearance: Present: alert, cooperative, no acute distress - Respiratory Exam Present: non-labored - Cardiovascular Exam Present: Regular Rate/Rhythm, pedal pulses intact - Extremities Exam Present: pulses intact - Dressing Dressing: dry, intact - Integumentary Exam Present: pink, warm, dry - Neurological Exam Present: intact to light touch, no deficits - Psychiatric Exam Present: alert, normal affect - Labs Result Diagrams: 05/04/18 04:04 05/04/18 04:04 Abnormal lab results 05/03/18 05/03/18 05/04/18 Range/Units 08:52 13:40 04:04 RBC 3.06 L (4.00-5.20) M/MM3 Hgb 9.3 L D 8.8 L (12-16) GM/DL Hct 27.7 L D (36-46) % RDW Std Deviation 53.0 H (36.9-50.2) FL MPV 12.5 H (9.4-12.4) UM3 Calcium (8.4-10.2) MG/DL Crossmatch (AHG) See Detail 05/04/18 Range/Units 04:04 RBC (4.00-5.20) M/MM3 Hgb (12-16) GM/DL Hct (36-46) % RDW Std Deviation (36.9-50.2) FL MPV (9.4-12.4) UM3 Calcium 8.3 L (8.4-10.2) MG/DL Crossmatch (AHG) H & H 04/29/18 05/01/18 05/02/18 Range/Units 17:30 04:46 03:56 Hgb 12.0 8.4 L D 7.7 L (12-16) GM/DL Hct 36.9 26.6 L D 24.5 L (36-46) % 05/02/18 05/03/18 05/03/18 Range/Units 16:32 04:24 13:40 Hgb 8.3 L 7.9 L 9.3 L D (12-16) GM/DL Hct 24.7 L (36-46) % 05/04/18 Range/Units 04:04 Hgb 8.8 L (12-16) GM/DL Hct 27.7 L D (36-46) % Orthopedic Assessment and Plan (1) Najma-prosthetic fracture of femur following total hip arthroplasty Status: Acute Qualifiers: Encounter type: initial encounter Qualified Code(s): M97.8XXA - Periprosthetic fracture around other internal prosthetic joint, initial encounter; Z96.649 - Presence of unspecified artificial hip joint Assessment and Plan: Continue current treatment. Foot flat weight bearing (touch) on right for transfers. Labs improved after 2u PRBC's. Will check xray of the right hip due to new c/o groin pain. Expecting txfr to [place] when medically stable. Cont Lovenox and SCDs for DVT protection. - Anticoagulation Therapy Anticoagulation: Lovenox 40 mg SQ Daily x 30 days from day of surgery Hospital Course Summary Disclaimer: The visit summary below is not to be considered part of the above Progress Note.
--- NOTE | 2018-05-04 08:53 | XRay Report ---
Indication: Check position of fx. Use long cassette for more femur. Procedure: XR hip RT min 2V: Encounter: Subsequent Comparison: 04/30/2018, 04/29/2018, 04/10/2018 Technique: AP and crosstable lateral views of the right hip were obtained Findings: Generalized osteopenia. Redemonstration of postoperative changes of right hip arthroplasty and more recent ORIF with cerclage wire placement of a recent periprosthetic fracture. Alignment of the fracture fragments appears grossly unchanged relative to the intraoperative fluoroscopic spot images on 04/30/2018 with persistent mild displacement. Overlying postsurgical soft tissue swelling/subcutaneous stranding and skin neeta noted. Impression: Postoperative changes of recent ORIF of a periprosthetic fracture of the proximal right femur which appears grossly unchanged in alignment compared to intraoperative fluoroscopic images on 04/30/2018, with persistent mild displacement. .
[2018-05-04] MEDS: DULOXETINE 60 MG CAPSULE PO SCH (09:28)
[2018-05-04] MEDS: CALCIUM CARBONATE 600 MG TABLET PO SCH (09:28)
[2018-05-04] MEDS: POLYETHYL GLYCOL 3350 17gm PACKET PO SCH (09:28)
[2018-05-04] MEDS: CELECOXIB 200 MG CAPSULE PO SCH (09:28)
[2018-05-04] MEDS: EZETIMIBE 10 MG TABLET PO SCH (09:28)
[2018-05-04] MEDS: FUROSEMIDE 20 MG TABLET PO SCH (09:29)
[2018-05-04] MEDS: FOLIC ACID 1 MG TABLET PO SCH (09:29)
[2018-05-04] MEDS: CycloSPORINE 0.05% EYE DROPS 4ml EACH EYE SCH (09:39)
--- NOTE | 2018-05-04 12:01 | Progress Note ---
- Date 05/04/18 Subjective: F/U: Hypotension, Acute blood loss anemia r/t surgery, S/p ORIF R femur periprosthetic fracture, Post op constipation Doing well. Notes some discomfort to post op leg with movements, but overall pain controlled. Breathing well without SOA or congestion. No chest pain. Eating well. Bowels moving-tolerating Miralax. Strength improving. Objective Vital signs: Temperature 96.4 F L 05/04/18 07:26 Pulse Rate 59 L 05/04/18 07:26 Respiratory Rate 16 05/04/18 10:28 Blood Pressure 111/51 05/04/18 07:26 Pulse Oximetry 94 05/04/18 07:26 Height/Weight/BMI: Height 1.7 m Weight 82.7 kg Body Mass Index 27.5 Results - Labs CBC & Chem 7: 05/04/18 04:04 05/04/18 04:04 Assessment and Plan Assessment and Plan: Assessment Hypotension - improved Acute blood loss anemia r/t surgery Improved post 2 units of pRBCs S/p ORIF R femur periprosthetic fracture Post op constipation Vitamin D deficiency Hypothyroidism Onset Date: ~1959 Kidney disease, chronic, stage III (GFR 30-59 ml/min) Deep vein thrombosis (DVT) of left lower extremity Asthma Obstructive sleep apnea -uses CPAP Neuropathy Chronic pain - on Morphine sulfate BID Muscle disorder - Rt Leg Weakness Osteoarthritis Depression GERD H/o Uterine cancer - (no chemo/radiation, clear lymph nodes. No recurrence) Onset Date: ~2011 Plan Hemoglobin improved to 8.8. Feels strength improving since transfusion. Blood pressure improved. Bowels moving - continue Miralax (holding with loose stool). Encourage continued therapy to improve functional status - arrangements for skilled care made. Medically stable for discharge if stable from orthopedic standpoint. Case discussed with CM. Time spent with patient care 25 minutes. DVT Prophylaxis: SCD's, Lovenox Resuscitation Status: Full Code - Time spent with patient Time with patient PN: 25 minutes - Physician Narrative Physician: Héctor Ortiz MD Narrative: Date: 05/04/18 Time: 1158 Hospital Course Summary Disclaimer: The visit summary below is not to be considered part of the above Progress Note.
--- NOTE | 2018-05-04 13:03 | Extended Care Facility Orders ---
Admission Orders Admit to:: Correction Allergies/Adverse Reactions: Allergies adhesive Adverse Reaction (Intermediate, Verified 04/29/18 17:35) skin peels off Admitting Diagnosis: ORIF of periprosthetic fracture with right proxima Admitting Physician: Sourav Mckeon MD Attending Physician: Sourav Mckeon MD Code Status: Full Code Anticiapted Length of Stay: 30 days or less Rehab Potential: good Rehab Prognosis: good Diet: 04/29/18 Dinner Regular Diet [DIET] Diet Modifications: May use Facility Protocol or Standing Orders: Yes May have flu vaccine: Yes Evaluations/Treatment: PT (Pt should be touch wt beaing with the foot flat on the ground instead of touching down with her toes.), OT (Pt should be touch wt beaing with the foot flat on the ground instead of touching down with her toes.) Correction Certification: I certify that SNF services are required to be given on an Inpatient basis because of the patients need for custodial care on a continuing basis for the condition(s) for which he/she received inpatient hospital services prior to his/her transfer to the SNF. SNF inpatient care is necessary for the following reasons Indication for Correction: Postop Assessment Care - Additional Information In Event of Arrest: Start CPR,call 911,send patient to the ER Resident is Aware of Diagnosis: Yes Laboratory/Radiology: CBC in a week to f/u on anemia. Referrals: Osbaldo Tyson PA [Physician Supply Chain Program Manager] - 05/18/18 10:00 am Additional Orders: Follow touch wt bearing restrictions with the right leg. Pt should not touch down with the toes but instead should be foot flat with touch wt bearing only. Keep the incision dry. Use Incentive Spirometer every 1-2 hrs while awake.
--- NOTE | 2018-05-04 13:21 | Discharge Summary ---
Orthopedic Discharge Info Date of admission: 04/29/18 16:54 Anticipated date of discharge: 05/04/18 Primary care physician: Leonel Ramirez MD Attending Physician: Sourav Mckeon MD Consults: 04/29/18 06:00 Consult to Anesthesiology [CONS] Routine Reason For Exam: Preoperative Assessment 04/30/18 15:41 Physician Consult [CONS] Routine Consulting Provider: Rajendra Raman Reason For Exam: CONT CARE Ordering Provider has Notified Rn Transfer: Yes 04/30/18 15:42 Physician Consult [CONS] Routine Consulting Provider: David Irwin Reason For Exam: CONT CARE Ordering Provider has Notified Rn Transfer: Yes 05/01/18 15:39 Physician [Physician Consult] [CONS] Routine Consulting Provider: Héctor Ortiz Reason For Exam: Hypotension, CKD III. Ordering Provider has Notified Rn Transfer: No - Discharge Diagnosis (1) Najma-prosthetic fracture of femur following total hip arthroplasty Qualifiers: Encounter type: initial encounter Qualified Code(s): M97.8XXA - Periprosthetic fracture around other internal prosthetic joint, initial encounter; Z96.649 - Presence of unspecified artificial hip joint Status: Acute - Procedures Procedures: Procedures Replacement of Left Knee Joint with Synthetic Substitute, Cemented, Open Approach (09/12/16) Total knee replacement (09/06/14) ORIF periprosthetic fracture of the right femur April 2018. - Laboratory Result Diagrams: 05/04/18 04:04 05/04/18 04:04 Laboratory: Abnormal lab results 05/03/18 05/03/18 05/04/18 Range/Units 08:52 13:40 04:04 RBC 3.06 L (4.00-5.20) M/MM3 Hgb 9.3 L D 8.8 L (12-16) GM/DL Hct 27.7 L D (36-46) % RDW Std Deviation 53.0 H (36.9-50.2) FL MPV 12.5 H (9.4-12.4) UM3 Calcium (8.4-10.2) MG/DL Crossmatch (AHG) See Detail 05/04/18 Range/Units 04:04 RBC (4.00-5.20) M/MM3 Hgb (12-16) GM/DL Hct (36-46) % RDW Std Deviation (36.9-50.2) FL MPV (9.4-12.4) UM3 Calcium 8.3 L (8.4-10.2) MG/DL Crossmatch (AHG) H & H 04/29/18 05/01/18 05/02/18 Range/Units 17:30 04:46 03:56 Hgb 12.0 8.4 L D 7.7 L (12-16) GM/DL Hct 36.9 26.6 L D 24.5 L (36-46) % 05/02/18 05/03/18 05/03/18 Range/Units 16:32 04:24 13:40 Hgb 8.3 L 7.9 L 9.3 L D (12-16) GM/DL Hct 24.7 L (36-46) % 05/04/18 Range/Units 04:04 Hgb 8.8 L (12-16) GM/DL Hct 27.7 L D (36-46) % Orthopedic Discharge HPI - HPI Comments 73 yo female who fell in late March and injured her right hip. Initial xrays in ER did not show a fracture. Pt followed up in ortho clinic where xrays revealed a mildly displaced periprosthetic fracture of her right femur. She was admitted for surgical fixation of this injury. See H&P for more details. Orthopedic Hospital Course Hospital course: 05/04/18 13:15 After appropriate preoperative clearance and signing of operative consent, the patient was given IV antibiotics, according to orthopedic protocol. The patient was taken to the operating room and underwent ORIF of the right femoral periprosthetic fracture. Following surgery, antibiotics were discontinued less than 24 hours according to joint protocol. Lovenox was initiated and SCDs added for DVT prevention. The dressing was clean, dry, and intact. Pain control was obtained via multimodal approach and her MS Contin has been resumed. Bowel motivation addressed with scheduled and PRN medications and she had a BM prior to discharge. Early mobilization was initiated through PT services with touch wt bearing on the right leg. Discharge arrangements made by a collaborative effort between the patient and Case Management. Her hgb dropped to 7.7 and she received 2 units of PRBCs. Her hgb improved to 8.8 at discharge. Will recheck this in a week. Pts bowels have moved. She is working with PT, but distance is limited due to restrictions on wt bearing. She had some mild elevation of her liver enzymes on admission but they were improving by discharge. She had a hepatitis panel in Sep 2017 that was negative. Follow-up is scheduled in 2 weeks. Discharge instructions given by orthopedic providers and nursing staff at discharge. Discharge condition was good. She is going to [place] for continued recovery following this surgery. Care extended to > 2 midnight stays?: Yes Discharge Plan - Med Rec/Dispo Referrals/Follow Up: Osbaldo Tyson PA [Physician Property Management Assistant] - 05/18/18 10:00 am Maria Antonia Instructions: Blood Transfusion (GEN), [facility] Postop Instructions Prescriptions: New Carboxymethylcellulose O/S [Refresh Celluvisc] 1 drop EACH EYE PRN PRN #1 ampul PRN Reason: Dry Eyes Enoxaparin Sodium [Lovenox] 40 mg SQ Q24H #30 syringe Milk of Magnesia [Mom] 30 ml PO DAILY PRN udc PRN Reason: Constipation Oxycodone *IR* [Roxicodone *Ir*] 5 - 15 mg PO Q3H PRN #60 tab PRN Reason: Pain PEG 3350 17gm PACKET [Miralax] 17 gm PO DAILY packet Senna + Docusate [Senna Plus Tablet] 1 tab PO BID PRN tab PRN Reason: Constipation Acetaminophen [Tylenol] 500 mg PO Q6H tab Continue Simethicone [Gas-X] 125 mg PO PRN PRN PRN Reason: Gas Lactobacillus Acidophilus [Probiotic] 1 cap PO HS Cholecalciferol (Vitamin D3) [Vitamin D3] 2,000 unit PO DAILY Calcium Carbonate 1,200 mg PO DAILY Furosemide [Lasix 20 mg Tab] 20 mg PO DAILY Ezetimibe 10 mg PO DAILY Duloxetine [Cymbalta] 60 mg PO DAILY Celecoxib 200 mg PO DAILY Potassium Chloride 10 meq PO DAILY Omeprazole [Prilosec] 20 mg PO ACB Carboxymethyl/Glycerin/Poly80 [Refresh Optive Advanced Drops] 1 drop EACH EYE PRN PRN PRN Reason: Prn Orders Bilberry Extract 150 mg PO HS azaTHIOprine [Imuran] 50 mg PO BID cycloSPORINE [Restasis Multidose] 1 drops EACH EYE BID Morphine Sulfate *SR* [Ms Contin] 15 mg PO BID #40 tab Levothyroxine Tab [Synthroid] 100 mcg PO DAILY Folic Acid [Folate] 2 mg PO DAILY Discontinued Acetaminophen [Acetaminophen Extra Strength] 1,000 mg PO Q6H PRN PRN Reason: Pain - Disposition 01 Discharged Home, Self-Care - Dismissal Complete Discharge Instructions are:: Complete
--- NOTE | 2018-05-04 13:47 | Extended Care Facility Orders ---
Admission Orders Admit to:: Assisted Allergies/Adverse Reactions: Allergies adhesive Adverse Reaction (Intermediate, Verified 04/29/18 17:35) skin peels off Admitting Diagnosis: ORIF of periprosthetic fracture with right proxima Admitting Physician: Sourav Mckeon MD Attending Physician: Sourav Mckeon MD Code Status: Full Code Anticiapted Length of Stay: 30 days or less Rehab Potential: good Rehab Prognosis: good Diet: 04/29/18 Dinner Regular Diet [DIET] Diet Modifications: May use Facility Protocol or Standing Orders: Yes May have flu vaccine: Yes Evaluations/Treatment: PT (Pt should be touch wt beaing with the foot flat on the ground instead of touching down with her toes.), OT (Pt should be touch wt beaing with the foot flat on the ground instead of touching down with her toes.) Assisted Certification: I certify that SNF services are required to be given on an Inpatient basis because of the patients need for [facility] care on a continuing basis for the condition(s) for which he/she received inpatient hospital services prior to his/her transfer to the SNF. SNF inpatient care is necessary for the following reasons Indication for Assisted: Postop Assessment Care - Additional Information In Event of Arrest: Start CPR,call 911,send patient to the ER Referrals: Osbaldo Tyson PA [Physician Waxer Tender] - 05/18/18 10:00 am Additional Orders: Follow touch wt bearing restrictions with the right leg. Pt should not touch down with the toes but instead should be foot flat with touch wt bearing only. Keep the incision dry. Use Incentive Spirometer every 1-2 hrs while awake.
[2018-05-04] MEDS: Oxycodone *IR* 5 MG TABLET PO PRN (15:01)
[2018-05-04 16:05] VITALS: BP 118/54; PULSE 64; TEMP 96.7; O2SAT 99
== END 2018-05-04 16:15 | DRG 481 ==
LOC: SRG 16:54
PROVIDERS: ADMIT Orthopaedic Surgery; ATTEND Orthopaedic Surgery